=== PATIENT | male | born 1930 | race Caucasian/White ===

== ENCOUNTER → 2016-05-08 | Outpatient (CLI) | payer MEDICARE, BC ==
--- NOTE | 2016-05-08 09:42 | RADRPT ---
PROCEDURE: XR pelvis/right hip. CLINICAL INDICATION: Hip pain TECHNIQUE: AP pelvis/AP and lateral right hip views performed COMPARISON: 05/09/2014 FINDINGS: There is mild to moderate bilateral hip osteoarthrosis. This is associated with joint space narrowin g, subchondral sclerosis and osteophytosis. There is normal mineralization. No fractures or osseou s lesions are identified. The soft tissues are unremarkable. There is moderate to severe L4-S1 degenerative disk disease IMPRESSION: Mild to moderate bilateral hip osteoarthrosis. Moderate to severe L4-S1 degenerative disk disease RPTAT: [facility] .Quinn Jacques MD, Date Time Electronically viewed and signed by .Quinn Jacques MD, on 05/08/2016 09:41 .B/
== END | disposition home or self-care (01) ==
LOC: HKI 08:50
PROVIDERS: ATTEND Orthopaedic Surgery
DX: M70.61 Trochanteric bursitis, right hip (principal); M25.551 Pain in right hip
CPT/HCPCS: 20610; 73502; G0463; J1030